=== PATIENT | male | born 1955 | race Caucasian/White ===

== ENCOUNTER → 2018-08-04 | Outpatient (CLI) | payer OTHER ==
[~2018-08-04] MED LIST: CATHETER FLUSH 10 ML SYR IV PRN; IOHEXOL 350 MG/ML 100 ML (OMNIPAQUE 350) VIAL IV ONE; NS 250 ML (IVPB) BAG IV ONE
--- NOTE | 2018-08-04 12:08 | Diagnostic Imaging Report ---
PROCEDURE: CT abdomen and pelvis with contrast. TECHNIQUE: Multiple contiguous axial images were obtained through the abdomen and pelvis after administration of intravenous contrast. INDICATION: Prostate cancer. COMPARISON: None. FINDINGS: Included portions of the lung bases are clear. Small hiatal hernia is noted. CT abdomen: There is colonic diverticulosis, but no CT evidence of acute diverticulitis. Normal appendix is identified. Small bowel loops are nondistended. The kidneys, adrenal glands, spleen, pancreas, and liver have a normal CT appearance. Cholelithiasis is noted. There is no appreciable gallbladder wall thickening or pericholecystic free fluid. There is no loculated fluid collection, free fluid, nor free air within the abdomen. No abnormal mesenteric or retroperitoneal adenopathy is seen. There is mild calcified arteriosclerosis. CT pelvis: Urinary bladder is grossly unremarkable. There is no loculated fluid collection, free fluid, nor free air within the pelvis. There is a single borderline prominent retroperitoneal lymph node interposed between the right common iliac artery and right ureter measuring approximately 1 cm in shortest axis dimension (image 64, series 4). No other abnormal pelvic adenopathy is seen. Bony structures show no acute abnormalities. No lytic or blastic bony lesions are seen. IMPRESSION: 1. Single borderline prominent pelvic lymph node. Otherwise, no evidence of metastatic or malignant disease is seen within the abdomen or pelvis. 2. Cholelithiasis. 3. Hiatal hernia. Dictated by: Dictated on workstation # [id number]
--- NOTE | 2018-08-04 15:18 | Diagnostic Imaging Report ---
INDICATION: Newly diagnosed prostate carcinoma. TECHNIQUE: The patient was administered 26.8 mCi technetium 99m MDP intravenously and whole body imaging was performed after a three-hour delay. FINDINGS: There is normal uptake of activity by the axial and appendicular skeleton. There is uptake by the kidneys with excretion into the urinary bladder. There are several tiny foci of mild uptake involving posterior ribs bilaterally. The greatest amount of intensity involves a left approximately seventh posterior rib. Small metastatic osseous lesions cannot be entirely excluded. The long bones are unremarkable. The spine is unremarkable. No abnormal uptake within the bony pelvis is seen. Calvarium is unremarkable. IMPRESSION: Small rib lesions, as described. These are concerning for osseous metastatic disease. Continued followup is recommended. Dictated by: Dictated on workstation # [id number]
== END ==
LOC: CARD 10:19
PROVIDERS: ATTEND Urology
DX: C61 Malignant neoplasm of prostate (principal)
CPT/HCPCS: 74177; 78306

== ENCOUNTER 2018-09-09 09:32 | Outpatient (RCR) | payer OTHER ==
[2018-12-08] MEDS ORDERED: RT-ALBUINH IH (10:48)
[2018-12-08] MEDS ORDERED: HYDR25TA4 PO (10:48)
[2018-12-08] MEDS ORDERED: OMEP20CA12 PO (10:48)
[2018-12-08] MEDS ORDERED: MONT10TA24 PO (10:48)
[2018-12-08] MEDS ORDERED: LOSA50TA63 PO (10:48)
[2018-12-08] MEDS ORDERED: ATOR40TA70 PO (10:48)
== END 2018-12-08 | disposition home or self-care (01) ==
LOC: ONC 09:32
PROVIDERS: ATTEND Radiology Radiation Oncology
DX: C61 Malignant neoplasm of prostate (principal)
CPT/HCPCS: 76873; 99205

== ENCOUNTER 2018-12-08 05:36 | Outpatient (CLI) | payer OTHER ==
[~2018-12-08] VITALS: Ht 175.3 cm; Wt 119.7 kg
[2018-12-08] MEDS ORDERED: HYDR25TA4 PO (10:48)
[2018-12-08] MEDS ORDERED: OMEP20CA12 PO (10:48)
[2018-12-08] MEDS ORDERED: RT-ALBUINH IH (10:48)
[2018-12-08] MEDS ORDERED: LOSA50TA63 PO (10:48)
[2018-12-08] MEDS ORDERED: ATOR40TA70 PO (10:48)
[2018-12-08] MEDS ORDERED: MONT10TA24 PO (10:48)
== END 2018-12-08 11:15 | disposition home or self-care (01) ==
LOC: PREOP 05:36
PROVIDERS: ATTEND Urology
DX: Z01.818 Encounter for other preprocedural examination (principal)

== ENCOUNTER 2018-12-11 08:28 | Day surgery (SDC) | payer OTHER ==
[~2018-12-11] VITALS: Ht 175.3 cm; Wt 119.7 kg
[~2018-12-11 08:28] MED LIST changes: +ATOR40TA70 PO; -CATHETER FLUSH 10 ML SYR IV PRN; +HYDR25TA4 PO; -IOHEXOL 350 MG/ML 100 ML (OMNIPAQUE 350) VIAL IV ONE; +LOSA50TA63 PO; +MONT10TA24 PO; -NS 250 ML (IVPB) BAG IV ONE; +OMEP20CA12 PO; +RT-ALBUINH IH
[2018-12-11] MEDS ORDERED: LACTATED RINGERS 1,000 ML IV PRN (08:50)
[2018-12-11] MEDS ORDERED: LEVOFLOXACIN 500 MG/100 ML IV 100 ML IV ONE (09:00)
[2018-12-11 09:55] VITALS: BP 124/79
[2018-12-11] MEDS ORDERED: LIDOCAINE PF 2% 5 ML (XYLOCAINE) VIAL ONE (10:16)
[2018-12-11] MEDS ORDERED: fentaNYL INJECTION 100 MCG/2 ML AMP ONE (10:16)
[2018-12-11] MEDS ORDERED: ROCURONIUM 10 MG/ML 5 ML SYRINGE IV ONE (10:16)
[2018-12-11] MEDS ORDERED: ONDANSETRON 4 MG/2 ML (SDV) Z0FRAN ONE (10:16)
[2018-12-11] MEDS ORDERED: proPOfol 200 MG/20 ML (DIPRIVAN) VIAL IV ONE (10:16)
[2018-12-11] MEDS ORDERED: MIDAZOLAM 2 MG/2 ML (VERSED) VIAL ONE (10:16)
[2018-12-11] MEDS ORDERED: SEVOFLURANE (ULTANE) 15 ML INHAL SOLN ONE ×2 (10:21→13:50)
[2018-12-11] MEDS ORDERED: DEXAMETHASONE 10 MG/ML (DECADRON) 1 ML VIAL ONE (10:21)
--- NOTE | 2018-12-11 12:14 | Progress Note-Post Operative ---
Post-Operative Progess Note Surgeon (s)/Yeast Pusher (s) Surgeon XIAO BUENROSTRO MD Yeast Pusher: MD GRISEL Pre-Operative Diagnosis PROSTATE CANCER Post-Operative Diagnosis SAME Procedure & Operative Findings Date of Procedure 12/11/18 Procedure Performed/Findings BRACHYTHERAPY, SPACE OAR, AND CYSTOGRAM Anesthesia Type GENERAL Estimated Blood Loss Estimated blood loss (mL): NEGLIGIBLE Specimens/Packing Specimens Removed N/A Packing: N/A XIAO BUENROSTRO MD Dec 11, 2018 12:14
--- NOTE | 2018-12-11 12:15 | Progress Note-Pre Operative ---
Pre-Operative Progress Note H&P Reviewed The H&P was reviewed, patient examined and no changes noted. Date Seen by Provider: Dec 11, 2018 Time Seen by Provider: 12:14 Date H&P Reviewed: Dec 11, 2018 Time H&P Reviewed: 12:14 Pre-Operative Diagnosis: CA PROSTATE XIAO BUENROSTRO MD Dec 11, 2018 12:15
--- NOTE | 2018-12-11 12:17 | Discharge Inst-Urology ---
Discharge Inst-Urology Discharge Medications New, Converted, or Re-newed RX: RX on Chart Patient Instructions/Follow Up Plan Discharge with [facility], leg bag day time and large bag night time with instructions. Office Thursday 12/28 at 2pm. Rest till then Come to office this Friday 9am to DC [facility] Increase oral fluids for 48 hours and then as needed. Diet and Activity as tolerated. If questions or concerns contact your physician Or seek help at emergency department. XIAO BUENROSTRO MD Dec 11, 2018 12:17
--- OUTSIDE RECORDS SUMMARY | 2018-12-11 12:30 | XMS REPORT | Continuity of Care Document ---
Demographics Preferred Language Unknown Marital Status Unknown Sikh Affiliation Unknown Race Unknown Ethnic Group Unknown Author Author [facility] Address Unknown Phone Unavailable Allergies There is no data. Medications There is no data. Problems Date Dx Coded Attending Type Code Diagnosis Diagnosed By 06/20/2008 V74.1 SCREENING EXAMINATION FOR PULMONARY TUBERCULOSIS 06/20/2008 V74.1 SCREENING EXAMINATION FOR PULMONARY TUBERCULOSIS 12/03/2012 V72.85 OTHER SPECIFIED EXAMINATION Procedures Code [place] [address] TB TEST INTRADERMAL 11/30/2012 Results There is no data. Encounters ACCT No. Visit Date/Time Discharge Status Pt. Type Provider Facility Loc./Unit Complaint [id number] 12/03/2012 11:00:00 12/03/2012 23:59:59 CLS Outpatient [id number] 11/30/2012 11:04:00 11/30/2012 23:59:59 CLS Outpatient
[2018-12-11] MEDS ORDERED: meTOprolol 5 MG/5 ML (LOPRESSOR) VIAL ONE (13:39)
[2018-12-11] MEDS ORDERED: PHENYLEPHRINE 100 MCG/ML 10 ML (ANESTHESIA) SYR ONE (13:39)
[2018-12-11] MEDS ORDERED: ONDANSETRON 4 MG/2 ML (SDV) Z0FRAN IVP PRN (14:45)
[2018-12-11] MEDS ORDERED: morphine INJ 10 MG/ML 1ML (SYR OR VIAL) IVP ONE (14:45)
[2018-12-11] MEDS ORDERED: PHEN-640 PO (14:49)
[2018-12-11] MEDS ORDERED: HYDR-3870 PO (14:49)
[2018-12-11] MEDS ORDERED: FINA5TAB PO (14:49)
[2018-12-11] MEDS ORDERED: TAMS0.4C98 PO (14:49)
[2018-12-11] MEDS ORDERED: CIPR-225 PO (14:49)
[2018-12-11 15:35] VITALS: BP 111/66
[2018-12-11 16:05] VITALS: BP 111/66
[2018-12-11 16:35] VITALS: BP 113/70
[2018-12-11 16:45] VITALS: BP 113/70
--- NOTE | 2018-12-11 21:27 | Diagnostic Imaging Report ---
INDICATION: Brachytherapy. Fluoroscopy was provided for Dr. Trejo for brachytherapy. 9 seconds of fluoroscopy was utilized. IMPRESSION: Fluoroscopy during brachytherapy. Dictated by: Dictated on workstation # [id number]
== END 2018-12-11 16:45 | disposition home or self-care (01) ==
LOC: SDC 08:28
PROVIDERS: ATTEND Urology
DX: C61 Malignant neoplasm of prostate (principal); I10 Essential (primary) hypertension; E78.00 Pure hypercholesterolemia, unspecified; J45.909 Unspecified asthma, uncomplicated; G47.33 Obstructive sleep apnea (adult) (pediatric); K21.9 Gastro-esophageal reflux disease without esophagitis; E66.9 Obesity, unspecified; Z68.39 Body mass index [BMI] 39.0-39.9, adult; Z79.899 Other long term (current) drug therapy
CPT/HCPCS: 76965; 77290; 77318; 77332; 77370; 77470; 77778; 87081

== ENCOUNTER → 2019-01-29 | Outpatient (CLI) | payer OTHER ==
[~2019-01-29] MED LIST changes: +CIPR-225 PO; +FINA5TAB PO; +HYDR-3870 PO; +PHEN-640 PO; +TAMS0.4C98 PO
--- NOTE | 2019-01-29 19:08 | Diagnostic Imaging Report ---
PROCEDURE: MRI pelvis without contrast. TECHNIQUE: Multiplanar, multisequence MRI of the pelvis was performed without contrast. INDICATION: Prostate cancer. FINDINGS: No seminal vesicle abnormality. The urinary bladder wall is mildly thickened but is poorly distended. No extraprostatic mass. No nodes within the mesorectal fascia or extra-mesorectal space. Presacral and pre-coccygeal tissues show no distortion. The pelvic sidewalls are unremarkable. The visualized marrow signal intensity is unremarkable. No lymphadenopathy. There is no evidence for hemorrhage. IMPRESSION: No hemorrhage or visualized soft tissue or osseous metastatic disease within the pelvis. Dictated on workstation # [id number]
== END ==
LOC: RAD 09:54
PROVIDERS: ATTEND Nurse Practitioner Family
DX: C61 Malignant neoplasm of prostate (principal)
CPT/HCPCS: 72195

== ENCOUNTER 2019-03-12 07:41 | Outpatient (RCR) | payer OTHER | END 2019-04-08 | disposition home or self-care (01) | LOC: ONC 07:41 | PROVIDERS: ATTEND Radiology Radiation Oncology | DX: Z51.0 Encounter for antineoplastic radiation therapy (principal); C61 Malignant neoplasm of prostate | CPT/HCPCS: 77290; 77295; 77300; 77301; 77334; 77336; 77338; 77385; 77470 ==

== ENCOUNTER → 2019-09-20 | Outpatient (CLI) | payer OTHER ==
[~2019-09-20] MED LIST changes: -OMEP20CA12 PO; +OMEP20CA13 PO; +RT-ALBUTEROL SULF 2.5 MG/3 ML PRE-MIX VIAL INH ONE
--- NOTE | 2019-09-20 10:15 | Diagnostic Imaging Report ---
INDICATION: Chronic right knee pain. AP, oblique, and lateral views of the right knee are obtained. FINDINGS: There is a well aligned right knee prosthesis. There is no sign of fracture or device loosening. There is no other bony abnormality seen. IMPRESSION: Well aligned right knee prosthesis with no acute abnormality. Dictated by: Dictated on workstation # [id number]
--- NOTE | 2019-09-20 11:24 | Diagnostic Imaging Report ---
INDICATION: Chronic left shoulder pain. TIME OF EXAM: 10:01 AM FINDINGS: Three views left shoulder were obtained. Glenohumeral and acromioclavicular alignment are normal. Acromiohumeral space is normal. No fracture or dislocation is seen. IMPRESSION: No acute bony abnormality is detected. Dictated by: Dictated on workstation # [id number]
--- NOTE | 2019-09-20 11:44 | Diagnostic Imaging Report ---
EXAMINATION: Left ankle radiographs, 3 views. COMPARISON: None. HISTORY: 64-year-old male, left ankle pain. FINDINGS: There is a calcaneal heel spur. There is very minimal degenerative type enthesopathy at the Achilles tendon insertion. There is no tibiotalar joint effusion. There is productive bone formation adjacent to the medial malleolus and medial talus which may relate to sequela of remote prior injury. There is no identified acute fracture. There is no radiopaque foreign body. There is no cortical or aggressive bone destruction. IMPRESSION: 1. Productive bone formation adjacent to the medial malleolus and medial talus most likely relating to sequela of remote prior injury. 2. No identified acute fracture or abnormal bone alignment. 3. Calcaneal heel spur. Dictated by: Dictated on workstation # [id number]
== END ==
LOC: RT 08:42
PROVIDERS: ATTEND Internal Medicine
DX: Z02.71 Encounter for disability determination (principal); M77.32 Calcaneal spur, left foot; M25.512 Pain in left shoulder; Z96.651 Presence of right artificial knee joint
CPT/HCPCS: 73030; 73562; 73610; 94060

== ENCOUNTER → 2020-04-13 | Outpatient (CLI) | payer OTHER ==
[~2020-04-13] MED LIST changes: -MONT10TA24 PO; +MONT10TA26 PO; -OMEP20CA13 PO; +OMEP20CA18 PO; -RT-ALBUTEROL SULF 2.5 MG/3 ML PRE-MIX VIAL INH ONE; -TAMS0.4C98 PO; +TMSL.4C PO
--- NOTE | 2020-04-13 17:19 | Diagnostic Imaging Report ---
INDICATION: DYSPNEA COMPARISON: None. FINDINGS: Frontal and lateral views of the chest demonstrate normal heart size and pulmonary vascularity. The lungs are clear. There are no signs of infiltrate, pleural effusions or pneumothoraces. The visualized osseous structures show no acute abnormalities. Prominent ovoid opacity is noted projecting over the lower chest, midline. This is felt to correspond a prominent fat-containing hiatal hernia seen on previous CT abdomen and pelvis. IMPRESSION: 1. No acute process. No signs of infiltrates, effusions or pneumothoraces. Dictated by: Dictated on workstation # [id number]
== END ==
LOC: RAD 15:21
PROVIDERS: ATTEND Nurse Practitioner Adult Health
DX: R06.00 Dyspnea, unspecified (principal)
CPT/HCPCS: 71046

== ENCOUNTER → 2020-05-18 | Outpatient (CLI) | payer OTHER ==
--- NOTE | 2020-05-18 09:49 | Diagnostic Imaging Report ---
PROCEDURE: CT abdomen and pelvis without contrast. TECHNIQUE: Multiple contiguous axial images were obtained through the abdomen and pelvis without the use of intravenous contrast. Auto Exposure Controls were utilized during the CT exam to meet ALARA standards for radiation dose reduction. INDICATION: Hematuria for 2 to 3 weeks and left-sided abdominal pain. Correlation is made with prior CT from 08/04/2018. The lung bases are clear. The liver is unremarkable. There is a stone within the gallbladder. No biliary duct dilatation is detected. The pancreas and spleen are unremarkable. No adrenal mass is detected. No renal calculi are identified. There is no hydronephrosis. No definite ureteral or bladder calculi are seen. The bladder is decompressed. There are multiple radiation seed implants within the prostate gland. The aorta is non-aneurysmal. The small and large bowel loops are normal in caliber. No obstruction is seen. There is diverticulosis of the sigmoid but no evidence of acute diverticulitis. Previously noted right pelvic lymph node adjacent to the right common iliac artery is stable at approximately 10 mm. No other prominent central retroperitoneal lymph nodes are detected. No external iliac or obturator lymphadenopathy is seen. No inguinal lymphadenopathy is detected. No definite osteoblastic lesions are seen. IMPRESSION: 1. Cholelithiasis. 2. No evidence of urinary tract calculi or obstruction. 3. Uncomplicated diverticulosis. 4. Stable right iliac lymph node. Dictated by: Dictated on workstation # [id number]
== END ==
LOC: RAD 09:02
PROVIDERS: ATTEND Urology
DX: K80.20 Calculus of gallbladder without cholecystitis without obstruction (principal); K57.30 Diverticulosis of large intestine without perforation or abscess without bleeding
CPT/HCPCS: 74176

== ENCOUNTER → 2020-06-06 | Outpatient (CLI) | payer OTHER | LOC: LAB 13:37 | PROVIDERS: ATTEND Urology | DX: R31.0 Gross hematuria (principal) ==

== ENCOUNTER 2021-07-20 09:58 | Emergency (ER) | payer OTHER ==
[~2021-07-20] VITALS: Ht 175.3 cm; Wt 122.5 kg
[~2021-07-20 09:58] MED LIST changes: -MONT10TA26 PO; +MONT10TA32 PO
[2021-07-20] MEDS ORDERED: ONDANSETRON 4 MG (ZOFRAN) ORAL DISSOLVE TAB PO STA (10:18)
--- NOTE | 2021-07-20 10:26 | ED Headache ---
General Chief Complaint: Head/Cervical Problems Stated Complaint: HERR,DIZZINESS,NAUSEA Nursing Triage Note: PT AMB TO [facility] 6 WITH COMPLAINT OF HEADACHE, DIZZINES, AND NAUSEA. STATES STARTED YESTERDAY. Source: patient Exam Limitations: no limitations History of Present Illness Date Seen by Provider: Jul 20, 2021 Time Seen by Provider: 10:09 Initial Comments Patient is a 66-year-old male who presents to the emergency department today with a chief complaint of feeling dizzy, generalized headache, nausea and vomiting. Onset of symptoms 24 hours ago. Patient states that he has never had anything quite like this before. He denies any falls or trauma. Has been so dizzy that he felt like he was going to fall 2 or 3 times yesterday. Denies problems with coordination. No vision changes. No hearing changes. No recent fevers, chills, URI symptoms. No diarrhea. No black or bloody stools. No urinary complaints. Tells me that he has a history of congestive heart failure/enlarged heart, hypertension, asthma and COPD. Is not a diabetic. Patient states he did not take any of his routine prescribed medications this morning secondary to thinking he might have labs drawn this morning and did not want to mess those up. Nothing makes his dizziness any worse. He states that possibly bending over might make his headache worse. Currently a little bit nauseous. No chest pain or shortness of breath. All other review of systems reviewed and negative except as stated Timing/Duration: 24 hours Severity/Quality: moderate Location: global Prior Headaches/Recent Trauma: occasional headaches Modifying Factors: worse with movement Associated Symptoms: nausea/vomiting Allergies and Home Medications Allergies Coded Allergies: No Known Drug Allergies (Unverified , 12/08/18) Patient Home Medication List Home Medication List Reviewed: Yes Albuterol Sulfate (Proair Hfa) 1 Puff Puff, 2 PUFF IH Q4H PRN for SHORTNESS OF BREATH, (Reported) Entered as Reported by: MATHEW SANFORD on 12/08/18 1048 Atorvastatin Calcium (Atorvastatin Calcium) 40 Mg Tablet, 20 MG PO DAILY, (Reported) Entered as Reported by: MATHEW SANFORD on 12/08/18 1048 Ciprofloxacin HCl (Cipro) 500 Mg Tablet, 500 MG PO BID Prescribed by: CHELA DENT on 12/11/18 1449 Finasteride (Proscar) 5 Mg Tablet, 5 MG PO DAILY Prescribed by: CHELA DENT on 12/11/18 144 Hydrochlorothiazide (Hydrochlorothiazide) 25 Mg Tablet, 25 MG PO DAILY, (Reported) Entered as Reported by: MATHEW SANFORD on 12/08/18 1048 Hydrocodone/Acetaminophen (Lorcet 5-325 mg Tablet) 1 Each Tablet, 1-2 EACH PO Q6H PRN for PAIN-MODERATE Prescribed by: CHELA DENT on 12/11/18 144 Losartan Potassium (Losartan Potassium) 50 Mg Tablet, 50 MG PO DAILY, (Reported) Entered as Reported by: MATHEW SANFORD on 12/08/18 1048 Meclizine HCl (Meclizine HCl) 25 Mg Tablet, 25 MG PO Q6H PRN for dizziness Prescribed by: BEN TELLEZ on 07/20/21 1119 Montelukast Sodium (Montelukast Sodium) 10 Mg Tablet, 10 MG PO DAILY, (Reported) Entered as Reported by: MATHEW SANFORD on 12/08/18 1048 Omeprazole (Omeprazole) 20 Mg Capsule.dr, 20 MG PO BID, (Reported) Entered as Reported by: MATHEW SANFORD on 12/08/18 1048 Phenazopyridine HCl (Pyridium) 200 Mg Tablet, 1 TAB PO TID PRN for BLADDER SPASMS Prescribed by: CHELA DENT on 12/11/18 144 Tamsulosin HCl (Flomax) 0.4 Mg Cap, 0.4 MG PO DAILY Prescribed by: CHELA DENT on 12/11/18 144 Review of Systems Review of Systems Constitutional: see HPI Eyes: No Symptoms Reported Ears, Nose, Mouth, Throat: no symptoms reported Respiratory: no symptoms reported Cardiovascular: no symptoms reported Gastrointestinal: nausea, vomiting Genitourinary: no symptoms reported Musculoskeletal: no symptoms reported Skin: no symptoms reported Psychiatric/Neurological: Headache, Other (dizziness) All Other Systems Reviewed Negative Unless Noted: Yes Past Rlloald-Ewtfnj-Bxgjfa Hx Patient Social History Tobacco Use?: Yes Smoking Status: Former Smoker Use of E-Cig and/or Vaping dev: No Substance use?: No Alcohol Use?: No Pt feels they are or have been: No Immunizations Up To Date First/Initial COVID19 Vaccinat: JANUARY 2021 Second COVID19 Vaccination Clem: JANUARY 2021 Seasonal Allergies Seasonal Allergies: Yes Past Medical History Surgeries: Yes (R TKR, ing hernia x3, umb hernia, partial toe amputions, plantar fascitiect) Respiratory: Yes Asthma, Sleep Apnea Currently Using CPAP: Yes Cardiac: Yes High Cholesterol, Hypertension Neurological: No Genitourinary: Yes Prostate Problems Gastrointestinal: Yes Gastroesophageal Reflux, Ulcer Musculoskeletal: Yes Arthritis Endocrine: No HEENT: Yes Cataract Cancer: Yes Prostate Psychosocial: No Integumentary: No Blood Disorders: No Physical Exam Vital Signs Vital Signs - First Documented 07/20/21 10:03 Pulse 60 Resp 22 B/P (MAP) 137/98 (111) Pulse Ox 95 O2 Delivery Room Air Capillary Refill : Less Than 3 Seconds Height, Weight, BMI Height: 5'9.00" Weight: 264lbs. 0.0oz. 119.233421fp; 39.00 BMI Method: General Appearance: WD/WN, no apparent distress HEENT: PERRL/EOMI, TM abnormal (L) (thickening left TM with some erythema and a small "blister" noted at about the 7 o'clock position on the tm) Neck: supple, normal inspection Cardiovascular: regular rate, rhythm Respiratory: lungs clear, normal breath sounds, no respiratory distress, no accessory muscle use Gastrointestinal: soft, tenderness (mild left sided) Extremities: normal range of motion, non-tender, normal inspection, no pedal edema, normal capillary refill Psychiatric: alert, oriented x 3 Crainal Nerves: normal hearing, normal speech, PERRL (pupils are pinpoint bilaterally) Coordination/Gait: normal finger to nose, normal gait Motor/Sensory: no motor deficit, no sensory deficit, other (normal heel to johnson) Skin: normal color, warm/dry Progress/Results/Core Measures Results/Orders Lab Results Laboratory Tests Test 07/20/21 10:42 Range/Units White Blood Count 6.8 4.3-11.0 10^3/uL Red Blood Count 4.86 4.30-5.52 10^6/uL Hemoglobin 14.3 13.3-17.7 g/dL Hematocrit 42 40-54 % Mean Corpuscular Volume 86 80-99 fL Mean Corpuscular Hemoglobin 29 25-34 pg Mean Corpuscular Hemoglobin Concent 34 32-36 g/dL Red Cell Distribution Width 12.1 10.0-14.5 % Platelet Count 251 130-400 10^3/uL Mean Platelet Volume 9.4 9.0-12.2 fL Immature Granulocyte % (Auto) 0 % Neutrophils (%) (Auto) 70 42-75 % Lymphocytes (%) (Auto) 15 12-44 % Monocytes (%) (Auto) 8 0-12 % Eosinophils (%) (Auto) 5 0-10 % Basophils (%) (Auto) 1 0-10 % Neutrophils # (Auto) 4.8 1.8-7.8 10^3/uL Lymphocytes # (Auto) 1.0 1.0-4.0 10^3/uL Monocytes # (Auto) 0.5 0.0-1.0 10^3/uL Eosinophils # (Auto) 0.4 H 0.0-0.3 10^3/uL Basophils # (Auto) 0.1 0.0-0.1 10^3/uL Immature Granulocyte # (Auto) 0.0 0.0-0.1 10^3/uL Sodium Level 138 135-145 MMOL/L Potassium Level 4.1 3.6-5.0 MMOL/L Chloride Level 105 98-107 MMOL/L Carbon Dioxide Level 26 21-32 MMOL/L Anion Gap 7 5-14 MMOL/L Blood Urea Nitrogen 15 7-18 MG/DL Creatinine 0.93 0.60-1.30 MG/DL Estimat Glomerular Filtration Rate 82 BUN/Creatinine Ratio 16 Glucose Level 108 H 70-105 MG/DL Calcium Level 9.5 8.5-10.1 MG/DL My Orders Orders - BEN TELLEZ MD Ekg Tracing (07/20/21 10:17) Ed Iv/Invasive Line Start (07/20/21 10:17) Cbc With Automated Diff (07/20/21 10:17) Basic Metabolic Panel (07/20/21 10:17) Ct Head Wo (07/20/21 10:17) Acetaminophen Tablet (Tylenol Tablet) (07/20/21 10:30) Ondansetron Oral Dissolve Tab (Zofran (07/20/21 10:18) Ns Iv 500 Ml (Sodium Chloride 0.9%) (07/20/21 11:30) Meclizine Tablet (Antivert Tablet) (07/20/21 11:30) Medications Given in ED Vital Signs/I&O 07/20/21 07/20/21 10:03 12:27 Pulse 60 56 Resp 22 14 B/P (MAP) 137/98 (111) 130/75 Pulse Ox 95 95 O2 Delivery Room Air Room Air 07/21/21 00:00 Intake Total 500 ml Balance 500 ml Blood Pressure Mean: 111 Progress Progress Note : Time: 11:16 Progress Note Patient states he feels "a little bit" better after Tylenol and Zofran. We will go ahead and give him 500 cc of fluid and 25 mg of meclizine p.o. CAT scan was reviewed and no intracranial abnormalities are observed however the patient is noted to have a metallic foreign body within the right maxillary sinus. I asked him about this and he does not recall ever having had any type of sinus surgery or instrumentation. He has had some dental implants in the past but nothing as far as the sinus. He denies any complaints of sinus congestion pain or drainage. No facial pain. Vital signs remained stable. Anticipate sending him home with follow-up with his primary care physician. He states he thinks the dizziness may be related to the 2 months of dry eyes he has been battling, [facility]. He started a new antibiotic drop within the last 24 hours. No other systemic complaints of illness or injury. No acute neurological deficits or concerns are appreciated. Will likely send him home with p.o. meclizine and return precautions. Patient is comfortable with this plan of care. All questions are sought and answered. Diagnostic Imaging Diagonstic Imaging: CT Plain Films/CT/US/NM/MRI: head Comments NAME: DENIZ [facility] REC#: [id number] PT STATUS: REG ER : 1955 PHYSICIAN: BEN TELLEZ MD ADMIT DATE: 07/20/21/ER Draft Date of Exam:07/20/21 CT HEAD WO INDICATION: Nausea and vomiting. Headache. Dizziness. TECHNIQUE: Routine non contrast-enhanced axial images were obtained from the skull base to the vertex. Auto Exposure Controls were utilized during the CT exam to meet ALARA standards for radiation dose reduction COMPARISON: None. FINDINGS: The ventricles and cortical sulci are diffusely prominent, compatible with age-related volume loss. There are confluent areas of abnormal, low attenuation in the periventricular white matter. This is consistent with small vessel ischemic changes; age-indeterminate. There is no prior study available for comparison. There is no midline shift or mass-effect. No acute intra-axial hemorrhage is seen. There are no abnormal areas of increased or decreased density to suggest acute hemorrhage or edema. No extra-axial masses or collections are present. The bony calvarium is intact. Evaluation of the paranasal sinuses demonstrates metallic foreign body within the right maxillary sinus. There is also moderate mucosal thickening and bubbly debris within the right maxillary sinus. Mastoid air cells are clear. IMPRESSION: 1. No acute intracranial abnormality. No CT evidence of mass, acute infarct or intracranial hemorrhage. 2. Small vessel ischemic changes in the periventricular and subcortical white matter; likely chronic. 3. Metallic foreign body with moderate mucosal thickening and bubbly debris in the right maxillary sinus. Dictated on workstation # [id number] Dict: 07/20/21 1101 Trans: 07/20/21 1105 [facility] [place] [id number] Interpreted by: BENITEZ MOSQUERA MD Electronically signed by: Departure Impression Primary Impression: Dizziness, nonspecific Additional Impression: Headache Qualified Codes: R51.9 - Headache, unspecified Disposition: 01 HOME, SELF-CARE Condition: Stable Departure-Patient Inst. Decision time for Depature: 11:19 Referrals: CHAY PABON (PCP/Family) Primary Care Physician Patient Instructions: Headache, Adult ED, Dizziness, Adult ED Scripts Meclizine HCl (Meclizine HCl) 25 Mg Tablet 25 MG PO Q6H PRN for dizziness, #20 TAB Prov: BEN TELLEZ MD 07/20/21 BEN TELLEZ MD Jul 20, 2021 10:26
[2021-07-20] MEDS ORDERED: ACETAMINOPHEN 500 MG TAB (TYLENOL) PO ONE (10:30)
[2021-07-20 10:48] LABS: BASOPHILS # (AUTO) 0.1 10^3/uL (0.0-0.1); BASOPHILS % (AUTO) 1 % (0-10); EOSINOPHILS # (AUTO) 0.4 10^3/uL (0.0-0.3); EOSINOPHILS % (AUTO) 5 % (0-10); HEMATOCRIT 42 % (40-54); HEMOGLOBIN 14.3 g/dL (13.3-17.7); LYMPHOCYTES % (AUTO) 15 % (12-44); MEAN CORPUSCULAR HEMOGLOBIN 29 pg (25-34); MEAN CORPUSCULAR HGB CONC 34 g/dL (32-36); MEAN CORPUSCULAR VOLUME 86 fL (80-99); MEAN PLATELET VOLUME 9.4 fL (9.0-12.2); MONOCYTES # (AUTO) 0.5 10^3/uL (0.0-1.0); MONOCYTES % (AUTO) 8 % (0-12); NEUTROPHILS # (AUTO) 4.8 10^3/uL (1.8-7.8); NEUTROPHILS % (AUTO) 70 % (42-75); PLATELET COUNT 251 10^3/uL (130-400); WHITE BLOOD COUNT 6.8 10^3/uL (4.3-11.0)
[2021-07-20 11:00] LABS: POTASSIUM 4.1 MMOL/L (3.6-5.0)
[2021-07-20 11:01] LABS: CALCIUM 9.5 MG/DL (8.5-10.1)
[2021-07-20 11:05] LABS: CREATININE SERUM 0.93 MG/DL (0.60-1.30)
--- NOTE | 2021-07-20 11:05 | Diagnostic Imaging Report ---
INDICATION: Nausea and vomiting. Headache. Dizziness. TECHNIQUE: Routine non contrast-enhanced axial images were obtained from the skull base to the vertex. Auto Exposure Controls were utilized during the CT exam to meet ALARA standards for radiation dose reduction COMPARISON: None. FINDINGS: The ventricles and cortical sulci are diffusely prominent, compatible with age-related volume loss. There are confluent areas of abnormal, low attenuation in the periventricular white matter. This is consistent with small vessel ischemic changes; age-indeterminate. There is no prior study available for comparison. There is no midline shift or mass-effect. No acute intra-axial hemorrhage is seen. There are no abnormal areas of increased or decreased density to suggest acute hemorrhage or edema. No extra-axial masses or collections are present. The bony calvarium is intact. Evaluation of the paranasal sinuses demonstrates metallic foreign body within the right maxillary sinus. There is also moderate mucosal thickening and bubbly debris within the right maxillary sinus. Mastoid air cells are clear. IMPRESSION: 1. No acute intracranial abnormality. No CT evidence of mass, acute infarct or intracranial hemorrhage. 2. Small vessel ischemic changes in the periventricular and subcortical white matter; likely chronic. 3. Metallic foreign body with moderate mucosal thickening and bubbly debris in the right maxillary sinus. Dictated by: Dictated on workstation # [id number]
[2021-07-20] MEDS ORDERED: MECL-149 PO (11:19)
[2021-07-20] MEDS ORDERED: MECLIZINE 25 MG (ANTIVERT) TAB PO ONE (11:30)
[2021-07-20] MEDS ORDERED: NS IV 500 ML 500 ML IV SCH (11:30)
[2021-07-20 12:27] VITALS: BP 130/75
== END 2021-07-20 12:27 | disposition home or self-care (01) ==
LOC: EDUNIT# 09:58 → ER 09:59
DX: T17.0XXA Foreign body in nasal sinus, initial encounter (principal); R51.9 Headache, unspecified; R42 Dizziness and giddiness; I11.0 Hypertensive heart disease with heart failure; I50.9 Heart failure, unspecified; J44.9 Chronic obstructive pulmonary disease, unspecified; E78.00 Pure hypercholesterolemia, unspecified; K21.9 Gastro-esophageal reflux disease without esophagitis; G47.33 Obstructive sleep apnea (adult) (pediatric); Z99.89 Dependence on other enabling machines and devices; Z87.891 Personal history of nicotine dependence; Z79.899 Other long term (current) drug therapy
CPT/HCPCS: 36415; 70450; 80048; 85025; 93005; 96360

== ENCOUNTER 2021-08-10 13:02 | Emergency (ER) | payer OTHER ==
[~2021-08-10] VITALS: Ht 175.2 cm; Wt 121.3 kg
[~2021-08-10 13:02] MED LIST changes: +MECL-149 PO
--- NOTE | 2021-08-10 13:37 | ED General ---
General Stated Complaint: BACK PAIN Source of Information: Patient Exam Limitations: No Limitations History of Present Illness Date Seen by Provider: Aug 10, 2021 Time Seen by Provider: 13:34 Initial Comments To ER with severe midline low back pain that occasionally radiates down the hips. This began a few weeks ago when he stepped down off of a curb and noticed a little sudden onset of discomfort but it was not intense. Few days later he bent forward to tie his shoe and had significant "searing" midline low back pain. The next day he again had severe low back pain when he bent forward to tie his shoes. Subsequently he has been wearing slip on shoes. No fevers or chills. No loss of sensation of genitals and no loss of bowel or bladder control. He does have a history of prostate cancer. Timing/Duration: 1 Week Severity: Moderate Associated Systoms: No Cough, No Fever/Chills Allergies and Home Medications Allergies Coded Allergies: No Known Drug Allergies (Unverified , 12/08/18) Patient Home Medication List Home Medication List Reviewed: Yes Albuterol Sulfate (Proair Hfa) 1 Puff Puff, 2 PUFF IH Q4H PRN for SHORTNESS OF BREATH, (Reported) Entered as Reported by: MATHEW SANFORD on 12/08/18 1048 Atorvastatin Calcium (Atorvastatin Calcium) 40 Mg Tablet, 20 MG PO DAILY, (Reported) Entered as Reported by: MATHEW SANFORD on 12/08/18 1048 Ciprofloxacin HCl (Cipro) 500 Mg Tablet, 500 MG PO BID Prescribed by: CHELA DENT on 12/11/18 1449 Finasteride (Proscar) 5 Mg Tablet, 5 MG PO DAILY Prescribed by: CHELA DENT on 12/11/18 1449 Hydrochlorothiazide (Hydrochlorothiazide) 25 Mg Tablet, 25 MG PO DAILY, (Reported) Entered as Reported by: MATHEW SANFORD on 12/08/18 1048 Hydrocodone/Acetaminophen (Lorcet 5-325 mg Tablet) 1 Each Tablet, 1-2 EACH PO Q6H PRN for PAIN-MODERATE Prescribed by: CHELA DENT on 12/11/18 1449 Losartan Potassium (Losartan Potassium) 50 Mg Tablet, 50 MG PO DAILY, (Reported) Entered as Reported by: MATHEW SANFORD on 12/08/18 1048 Meclizine HCl (Meclizine HCl) 25 Mg Tablet, 25 MG PO Q6H PRN for dizziness Prescribed by: BEN TELLEZ on 07/20/21 1119 Methocarbamol (Methocarbamol) 750 Mg Tablet, 750 MG PO Q6-8HR Prescribed by: AUDREY NICHOLS on 08/10/21 1426 Montelukast Sodium (Montelukast Sodium) 10 Mg Tablet, 10 MG PO DAILY, (Reported) Entered as Reported by: MATHEW SANFORD on 12/08/18 1048 Naproxen (Naprosyn) 500 Mg Tablet, 500 MG PO BID Prescribed by: AUDREY NICHOLS on 08/10/21 1426 Omeprazole (Omeprazole) 20 Mg Capsule.dr, 20 MG PO BID, (Reported) Entered as Reported by: MATHEW SANFORD on 12/08/18 1048 Phenazopyridine HCl (Pyridium) 200 Mg Tablet, 1 TAB PO TID PRN for BLADDER SPASMS Prescribed by: CHELA DENT on 12/11/18 1449 Tamsulosin HCl (Flomax) 0.4 Mg Cap, 0.4 MG PO DAILY Prescribed by: CHELA DENT on 12/11/18 1449 Review of Systems Review of Systems Constitutional: see HPI EENTM: see HPI Respiratory: no symptoms reported Cardiovascular: no symptoms reported Genitourinary: no symptoms reported Musculoskeletal: see HPI, back pain Skin: no symptoms reported Psychiatric/Neurological: No Symptoms Reported Hematologic/Lymphatic: No Symptoms Reported Immunological/Allergic: no symptoms reported Past Qkqckmb-Fzoyfy-Wewmxs Hx Immunizations Up To Date First/Initial COVID19 Vaccinat: JANUARY 2021 Second COVID19 Vaccination Clem: JANUARY 2021 Seasonal Allergies Seasonal Allergies: Yes Past Medical History Surgeries: Yes (R TKR, ing hernia x3, umb hernia, partial toe amputions, plantar fascitiect) Respiratory: Yes Asthma, Sleep Apnea Currently Using CPAP: Yes Cardiac: Yes High Cholesterol, Hypertension Neurological: No Genitourinary: Yes Prostate Problems Gastrointestinal: Yes Gastroesophageal Reflux, Ulcer Musculoskeletal: Yes Arthritis Endocrine: No HEENT: Yes Cataract Cancer: Yes Prostate Psychosocial: No Integumentary: No Blood Disorders: No Physical Exam Vital Signs Vital Signs - First Documented 08/10/21 13:51 Temp 36.1 Pulse 64 Resp 20 B/P (MAP) 156/84 (108) Pulse Ox 94 O2 Delivery Room Air Capillary Refill : Height, Weight, BMI Height: 5'9.00" Weight: 264lbs. 0.0oz. 119.806358hh; 39.00 BMI Method: General Appearance: No Apparent Distress, WD/WN, Obese Eyes: Bilateral Eye Normal Inspection, Bilateral Eye PERRL, Bilateral Eye EOMI Neck: Full Range of Motion, Normal Inspection Respiratory: Normal Breath Sounds, No Accessory Muscle Use, No Respiratory Distress Gastrointestinal: Non Tender, Soft Extremity: Normal Capillary Refill, Normal Inspection Neurologic/Psychiatric: Alert, Oriented x3 Skin: Normal Color, Warm/Dry Progress/Results/Core Measures Suspected Sepsis SIRS Temperature: Pulse: Respiratory Rate: Blood Pressure / Mean: Results/Orders My Orders Orders - AUDREY NICHOLS APRN Ct Lumbar Spine Wo (08/10/21 13:32) Ketorolac Injection (Toradol Injection) (08/10/21 13:45) Orphenadrine Inj (Ed Only) (Norflex Inje (08/10/21 13:45) Medications Given in ED Current Medications Medications Dose Ordered Sig/Dianna Route Start Time Stop Time Status Last Admin Dose Admin Ketorolac Tromethamine 60 mg ONCE ONCE IM 08/10/21 13:45 08/10/21 13:46 DC 08/10/21 13:49 60 MG Orphenadrine Citrate 60 mg ONCE ONCE IM 08/10/21 13:45 08/10/21 13:46 DC 08/10/21 13:49 60 MG Vital Signs/I&O 08/10/21 13:51 Temp 36.1 Pulse 64 Resp 20 B/P (MAP) 156/84 (108) Pulse Ox 94 O2 Delivery Room Air Capillary Refill : Departure Impression Primary Impression: Acute low back pain Disposition: 01 HOME, SELF-CARE Condition: Stable Departure-Patient Inst. Decision time for Depature: 14:25 Referrals: CHAY PABON (PCP/Family) Primary Care Physician Patient Instructions: Low Back Pain (DC) Add. Discharge Instructions: 1. Pain medication as directed 2. Return to ER for any concerns 3. Follow-up with your doctor next week. Scripts Hydrocodone/Acetaminophen (Hydrocodone-Acetamin 5-325 mg) 1 Each Tablet 1 TAB PO Q4H PRN for PAIN-MODERATE (5-7), #10 TAB Prov: AUDREY NICHOLS APRN 08/10/21 Methocarbamol (Methocarbamol) 750 Mg Tablet 750 MG PO Q6-8HR for Back Pain, #14 TAB Prov: AUDREY NICHOLS APRN 08/10/21 Naproxen (Naprosyn) 500 Mg Tablet 500 MG PO BID, #30 TAB 0 Refills Prov: AUDREY NICHOLS APRN 08/10/21 AUDREY NICHOLS APRN Aug 10, 2021 13:37
[2021-08-10] MEDS ORDERED: KETOROLAC 60 MG/2 ML VIAL IM ONE (13:45)
[2021-08-10] MEDS ORDERED: ORPHENADRINE 60 MG/2 ML (NORFLEX) AMP (ED ONLY) IM ONE (13:45)
--- NOTE | 2021-08-10 14:22 | Diagnostic Imaging Report ---
PROCEDURE: CT lumbar spine without contrast. TECHNIQUE: Multiple contiguous axial images were obtained through the lumbar spine without the use of intravenous contrast. Sagittal and coronal reformations were then performed. Auto Exposure Controls were utilized during the CT exam to meet ALARA standards for radiation dose reduction. INDICATION: Low back pain. COMPARISON: CT abdomen and pelvis from 05/18/2020. FINDINGS: Normal lordosis of the lumbar spine. No traumatic subluxation. No acute fracture. Pseudoarticulation of the bilateral transverse processes of S1 as S1 is partially lumbarized. No high-grade spinal stenosis. No paravertebral hematoma. No concerning abnormality in the retroperitoneum. IMPRESSION: 1. No fracture or malalignment within the lumbar spine. 2. No high-grade spinal stenosis. Dictated by: Dictated on workstation # [id number]
[2021-08-10] MEDS ORDERED: METH-732 PO (14:26)
[2021-08-10] MEDS ORDERED: NAPR-1071 PO (14:26)
[2021-08-10] MEDS ORDERED: ACHD5005 PO (14:30)
[2021-08-10 15:13] VITALS: BP 137/75
== END 2021-08-10 14:39 | disposition home or self-care (01) ==
LOC: EDUNIT# 13:02 → ER 13:04
DX: M54.50 Low back pain, unspecified (principal); J45.909 Unspecified asthma, uncomplicated; G47.30 Sleep apnea, unspecified; I10 Essential (primary) hypertension; E78.00 Pure hypercholesterolemia, unspecified; E66.9 Obesity, unspecified; K21.9 Gastro-esophageal reflux disease without esophagitis; Z68.39 Body mass index [BMI] 39.0-39.9, adult; Z79.899 Other long term (current) drug therapy
CPT/HCPCS: 72131

== ENCOUNTER → 2022-01-28 | Outpatient (CLI) | payer OTHER ==
[~2022-01-28] MED LIST changes: +ACHD5005 PO; +HOLD METFORMIN - RECEIVED CONTRAST 20 ML VIAL IV SCH; +IOHEXOL 350 MG/ML 100 ML (OMNIPAQUE 350) VIAL IV ONE; +METH-732 PO; +MONT-40 PO; -MONT10TA32 PO; +NAPR-1071 PO; +NS 100 ML (IVPB) BAG IV ONE
--- NOTE | 2022-01-28 10:16 | Diagnostic Imaging Report ---
PROCEDURE: CT head with and without contrast. TECHNIQUE: Multiple contiguous axial images were obtained through the brain before and after the administration of intravenous contrast. Auto Exposure Controls were utilized during the CT exam to meet ALARA standards for radiation dose reduction. INDICATION: HEADACHES vision loss COMPARISON: 07/20/2021 FINDINGS: The ventricles and cortical sulci are diffusely prominent, compatible with age-related volume loss. There are confluent areas of abnormal, low attenuation in the periventricular white matter. This is consistent with chronic small vessel ischemic changes. There is no midline shift or mass-effect. Postcontrast images show no abnormal areas of enhancement. No acute intra-axial hemorrhage is seen. There are no abnormal areas of increased or decreased density to suggest acute hemorrhage or edema. No extra-axial masses or collections are present. The bony calvarium is intact. The visualized paranasal sinuses show metallic foreign body with associated thickening in the right maxillary sinus. The mastoid air cells are clear. IMPRESSION: 1. No acute intracranial abnormality. No CT evidence of mass, acute infarct or intracranial hemorrhage. 2. Chronic small vessel ischemic changes in the deep white matter. Dictated by: Dictated on workstation # [id number]
== END ==
LOC: RAD 09:05
PROVIDERS: ATTEND Nurse Practitioner Adult Health
DX: I67.82 Cerebral ischemia (principal)
CPT/HCPCS: 70470

== ENCOUNTER → 2022-05-08 | Outpatient (CLI) | payer OTHER ==
[~2022-05-08] MED LIST changes: -HOLD METFORMIN - RECEIVED CONTRAST 20 ML VIAL IV SCH; -IOHEXOL 350 MG/ML 100 ML (OMNIPAQUE 350) VIAL IV ONE; -NS 100 ML (IVPB) BAG IV ONE
--- NOTE | 2022-05-08 11:30 | Diagnostic Imaging Report ---
PROCEDURE: CT abdomen without contrast. TECHNIQUE: Multiple contiguous axial images were obtained through the abdomen without the use of intravenous contrast. Auto Exposure Controls were utilized during the CT exam to meet ALARA standards for radiation dose reduction. INDICATION: Question recurrent hernia. Correlation is made with prior CT from 05/18/2020. FINDINGS: The lung bases are clear. No liver mass is detected. There is a stone within the gallbladder. There is no biliary ductal dilatation. Pancreas and spleen are unremarkable. No adrenal mass is detected. No renal calculi or hydronephrosis is seen. Aorta is nonaneurysmal. Visualized small and large bowel loops are normal caliber. There is no obstruction. No definite abdominal wall defect or hernia is detected. There is no free fluid. IMPRESSION: 1. Cholelithiasis. 2. No evidence of abdominal wall defect or hernia is identified. Dictated by: Dictated on workstation # [id number]
== END ==
LOC: RAD 10:35
PROVIDERS: ATTEND Nurse Practitioner Adult Health
DX: K31.89 Other diseases of stomach and duodenum (principal)
CPT/HCPCS: 74150

== ENCOUNTER → 2022-08-05 | Outpatient (CLI) | payer OTHER ==
--- NOTE | 2022-08-05 12:49 | Diagnostic Imaging Report ---
EXAMINATION: US Abdomen limited. TECHNIQUE: Multiple Real-time grayscale images were obtained over the right upper quadrant in various projections. REASON FOR EXAM: Right upper quadrant pain. COMPARISON: 05/08/2022. FINDINGS: The liver is normal in size and shape. The liver echogenicity is within normal limits. There are no focal lesions. No intrahepatic biliary dilatation is present. The common bile duct is not dilated and measures 5 mm. The main portal vein is hepatopedal. No ascites is seen in the upper abdomen. Layering gallstones are seen within the gallbladder lumen. There is no evidence of gallbladder wall thickening or pericholecystic fluid. Sonographic Ozuna's sign is negative. The pancreas is not well visualized due to overlying bowel gas. The visualized portions of the IVC and aorta appear normal. The right kidney measures approximately 10.2 cm in length and has a normal appearance. IMPRESSION: Cholelithiasis without sonographic evidence of acute cholecystitis. Recommend correlation with the patient's symptoms and followup as indicated. Dictated by: Dictated on workstation # [id number]
== END ==
LOC: RAD 07:57
PROVIDERS: ATTEND Hospitalist
DX: Z01.89 Encounter for other specified special examinations (principal); K80.20 Calculus of gallbladder without cholecystitis without obstruction; K81.9 Cholecystitis, unspecified
CPT/HCPCS: 76705